=== PATIENT | female | born 1960 | race Caucasian/White ===

== ENCOUNTER 2016-04-01 16:25 | Emergency (ER) | payer OTHER ==
[~2016-04-01] VITALS: Wt 62.0 kg
--- NOTE | 2016-04-01 18:33 | ERD ---
ER Documentation Chief Complaint Date/Time DATE: 04/01/16 TIME: 18:31 Chief Complaint llq HPI There is a 55-year-old female. 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 The patient is a very difficult historian with myriad complaints. Her main complaint today is left lower quadrant abdominal pain for at least 2 weeks. She describes it as swelling and throbbing. The patient approximately 8 months ago had a "tummy tuck in [facility] ". The patient denies any nausea vomiting or diarrhea, no constipation. Multiple other complaints including periorbital swelling 2 weeks ago that has resolved, lumbar back pain 3 weeks ago that has since resolved. ROS All systems reviewed and are negative except as per history of present illness. Medications Home Meds Active Scripts Ondansetron (Ondansetron Odt) 4 Mg Tab.rapdis, 4 MG PO Q6H Y for NAUSEA AND/OR VOMITING, #30 TAB Prov:CHIDI ALBA MD 04/01/16 Dicyclomine Hcl* (Bentyl*) 10 Mg Capsule, 10 MG PO QID Y for abdominal cramping , #30 CAP Prov:CHIDI ALBA MD 04/01/16 PMhx/Soc Medical and Surgical Hx: pt denies Medical Hx, pt denies Surgical Hx Hx Alcohol Use: No Hx Substance Use: No Smoking Status: Never smoker FmHx Family History: No diabetes Physical Exam Vitals Vital Signs Date Time Temp Pulse Resp B/P Pulse Ox O2 Delivery O2 Flow Rate FiO2 04/01/16 16:28 98.1 74 20 122/64 95 Physical Exam General: Well developed, well nourished, no acute distress Head: Normocephalic, atraumatic. Eyes: Pupils equally reactive, EOM intact ENT: Moist mucous membranes Neck: Supple, no lymphadenopathy Respiratory: Lungs clear bilaterally, no distress Cardiovascular: RRR, no murmurs, rubs, or gallops Abdominal: Soft, inconsistent mild tenderness to left lower quadrant surgical wound is well-appearing : Deferred MSK: No edema, no unilateral swelling, 5/5 strength Neurologic: Alert and oriented, moving all extremities, normal speech, no focal weakness, no cerebellar signs Skin: No rash Psych: Normal mood Result Diagram: 04/01/16181104/01/16 181 Results 24 hrs Laboratory Tests Test 2/16/17 18:12 Alanine Aminotransferase (ALT/SGPT) 27IU/L Albumin 4.4g/dl Albumin/Globulin Ratio 1.69 Alkaline Phosphatase 83IU/L Anion Gap 17 Aspartate Amino Transf (AST/SGOT) 21IU/L Basophils # 0.010^3/ul Basophils % 0.5% Blood Urea Nitrogen 10mg/dl Calcium Level 9.6mg/dl Carbon Dioxide Level 29mmol/L Chloride Level 104mmol/L Creatinine 0.47mg/dl Direct Bilirubin 0.00mg/dl Eosinophils # 0.310^3/ul Eosinophils % 3.8% Globulin 2.60g/dl Glucose Level 78mg/dl Hematocrit 40.5% Hemoglobin 13.8g/dl Indirect Bilirubin 0.2mg/dl Lipase 151U/L Lymphocytes # 2.110^3/ul Lymphocytes % 27.5% Mean Corpuscular Hemoglobin 29.9pg Mean Corpuscular Hemoglobin Concent 34.1g/dl Mean Corpuscular Volume 87.8fl Mean Platelet Volume 7.5fl Monocytes # 0.710^3/ul Monocytes % 8.4% Neutrophils # 4.710^3/ul Neutrophils % 59.8% Nucleated Red Blood Cells # 0.010^3/ul Nucleated Red Blood Cells % 0.0/100WBC Platelet Count 83464^3/UL Potassium Level 4.0mmol/L Red Blood Count 4.6110^6/ul Red Cell Distribution Width 12.7% Sodium Level 146mmol/L Total Bilirubin 0.2mg/dl Total Protein 7.0g/dl White Blood Count 7.810^3/ul Procedures/MDM EKG, MONITORS, & DIAGNOSTIC IMAGING: CT abdomen and pelvis: IMPRESSION: 1. Mild colonic diverticulosis without evidence of diverticulitis. 2. Otherwise unremarkable noncontrast CT abdomen and pelvis without acute pathology identified. RPTAT: AA LAB INTERPRETATION: No leukocytosis, normal electrolytes MEDICAL DECISION MAKING: The patient presents with 2 weeks of abdominal pain. She had a surgery in [facility] approximately 8 months ago. Broad differential however this is not consistent with infection. Her surgical site is well-appearing. Given the patient's surgical history, inconsistent and unreliable history I do believe she would benefit from laboratory testing and CT imaging. However, very low clinical concern for diverticulitis, bowel obstruction, acute appendicitis, perforation, abscess, ovarian process among others. ER COURSE: The patient continues to be well-appearing. Her laboratory testing is unrevealing. CT abdomen and pelvis is also unrevealing. At this time outpatient management for the subacute process would be reasonable. The patient has been referred to her primary care physician. I kept the patient and/or family informed of laboratory and diagnostic imaging results throughout the emergency room course. DISPOSITION PLAN: We discussed follow up with the patient's primary care doctor within 24 to 48 hours as needed. We also discussed return to the emergency room for worsening symptoms or worsening condition. Discharge Medications: Cally Coker Departure Diagnosis: Primary Impression: Abdominal pain Abdominal location: generalized Qualified Code: R10.84 - Generalized abdominal pain Condition: Stable CHIDI ALBA MD Apr 01, 2016 18:33
[2016-04-01 18:45] LABS: HEMATOCRIT 40.5 % (37.0-47.0); HEMOGLOBIN 13.8 g/dl (12.0-16.0); MEAN CORPUSCULAR HEMOGLOBIN 29.9 pg (29.0-33.0); MEAN CORPUSCULAR HGB CONC 34.1 g/dl (32.0-37.0); MEAN CORPUSCULAR VOLUME 87.8 fl (82.0-101.0); MEAN PLATELET VOLUME 7.5 fl (7.4-10.4); PLATELET COUNT 292 10^3/UL (140-440); RED BLOOD COUNT 4.61 10^6/ul (4.20-5.40); RED CELL DISTRIBUTION WIDTH 12.7 % (11.5-14.5); UNCORRECTED WBC 7.8 10^3/ul (4.8-10.8); WHITE BLOOD COUNT 7.8 10^3/ul (4.8-10.8)
[2016-04-01 18:46] LABS: CONDITION 1
[2016-04-01 18:51] LABS: ALBUMIN 4.4 g/dl (3.3-4.9)
[2016-04-01 18:54] LABS: ALBUMIN/GLOBULIN RATIO 1.69; BILIRUBIN,INDIRECT 0.2 mg/dl (0-1.1); BILIRUBIN,TOTAL 0.2 mg/dl (0.2-1.3); CREATININE 0.47 mg/dl (0.44-1.00)
[2016-04-01 18:55] LABS: CALCIUM 9.6 mg/dl (8.4-10.2)
--- NOTE | 2016-04-01 18:58 | RADRPT ---
PROCEDURE: CT Abdomen and Pelvis without intravenous contrast. CLINICAL INDICATION: Abdominal left lower quadrant pain. . TECHNIQUE: CT scan of the abdomen and pelvis without intravenous contrast was performed on a multi -slice CT scanner. Coronal and sagittal reformatted images were obtained from the axial source image s. Images were reviewed on a high-resolution PACS workstation. Total DLP = 462.6 mGy-cm. CTDIvol = 9.3 mGy. One or more of the following dose reduction techniques were used: Automated exposure control. Adjustment of the mA and/or kV according to patient size. Use of iterative reconstruction technique. COMPARISON: None. FINDINGS: CT abdomen and pelvis: The lung bases are clear. The heart size is normal in size. The liver is normal in size and densit y without focal mass or intrahepatic biliary dilatation. The spleen is normal in size and homogeneo us in density. The pancreas as visualized is normal. The gallbladder shows no evidence of stones or distension . The adrenal glands are normal. The kidneys are symmetrically unremarkable. No ur olithiasis, obstructive uropathy, or solid mass lesion is seen. The stomach is partially collapsed, but is grossly unremarkable. The small bowels are unremarkable. The colon and rectum are normal. Mild retained feces seen in the right colon. The appendix is normal . There are scattered colonic diverticula. There is no evidence of appendicitis or diverticulitis. The pelvic organs are normal. The bladder is normal. There is no abdominal or pelvic adenopathy, fr ee fluid, free air, mass or mesenteric inflammation. The aorta is normal in caliber with calcific atherosclerosis . The osseous structures appear intact. . No osteolytic or osteoblastic lesions are identified. The soft tissues are within normal limits. Lack of IV and oral contrast limits sensitivity of exam. IMPRESSION: 1. Mild colonic diverticulosis without evidence of diverticulitis. 2. Otherwise unremarkable noncontrast CT abdomen and pelvis without acute pathology identified. RPTAT: AA .Matt Solis MD, MD Date Time Electronically viewed and signed by .Matt Solis MD, MD on 04/01/2016 18:57 .L/
[2016-04-01 19:00] LABS: ADD UMIC YES; URINE BILIRUBIN (Dip) NEGATIVE (NEGATIVE); URINE BLOOD (Dip) TRACE (NEGATIVE); URINE COLOR LT. YELLOW (YELLOW); URINE GLUCOSE (Dip) NEGATIVE (NEGATIVE); URINE KETONES (Dip) NEGATIVE (NEGATIVE); URINE LEUKOCYTE ESTERASE (Dip) TRACE (NEGATIVE); URINE NITRITE (Dip) NEGATIVE (NEGATIVE); URINE TOTAL PROTEIN (Dip) NEGATIVE (NEGATIVE); URINE UROBILINOGEN (Dip) 0.2 E.U./dL (0.1-1.0)
[2016-04-01] MEDS ORDERED: ONDA4TAB14 PO (19:11)
[2016-04-01] MEDS ORDERED: DICY10CA60 PO (19:11)
[2016-04-01 19:25] LABS: URINE RBCS 0-2 /HPF (0)
[2016-04-01 19:26] LABS: SQUAMOUS EPITHELIAL CELL,UR FEW
[2016-04-01 22:18] LABS: EOSINOPHILS # 0.5 10^3/ul (0.0-0.5); LYMPHOCYTES # 2.6 10^3/ul (0.8-2.9); MONOCYTE # 0.7 10^3/ul (0.3-0.9)
== END 2016-04-01 19:36 | disposition home or self-care (01) ==
LOC: FTE 16:25
DX: R10.84 Generalized abdominal pain (principal)
CPT/HCPCS: 36415; 74176; 80053; 81001; 83690; 85025; Z7502; 81003

== ENCOUNTER 2018-03-05 18:17 | Emergency (ER) | payer MEDICAID, OTHER ==
[~2018-03-05] VITALS: Ht 160 cm; Wt 67.0 kg
[~2018-03-05 18:17] MED LIST: DICY10CA40 PO; ONDA4TAB14 PO
[2018-03-05 18:27] VITALS: Ht 160 cm; Wt 67.0 kg
[2018-03-05] MEDS ORDERED: CEPH-443 PO (19:49)
[2018-03-05] MEDS ORDERED: SULF1TAB31 PO (19:49)
[2018-03-05 19:55] VITALS: BP 123/63; PULSE 68; RESP 16
--- NOTE | 2018-03-05 19:55 | ERD ---
ER Documentation Chief Complaint Chief Complaint RECTAL PAIN AND PELVIC PAIN, NO BLEEDING HPI 57-year-old female presents with 3-day history of perirectal pain. She says she is not sure what it is that she has had it in the past. Denies pain upon defecation. Does state that it is tender to palpation. Says that her sometimes a little blood on the toilet paper. Denies fevers, constipation, diarrhea, dysuria denies. Past medical history of diverticulitis. Denies allergies. Denies medications. Denies surgeries. Denies alcohol, tobacco, drug use. Up to date on vaccines. ROS All systems reviewed and are negative except as per history of present illness. Medications Home Meds Active Scripts Sulfamethoxazole/Trimethoprim* (Bactrim Ds* Tablet) 1 Each Tablet, 1 TAB PO BID for infection for 7 Days, #14 TAB Prov:JAVICHRISTIE 03/05/18 Cephalexin* (Keflex*) 500 Mg Capsule, 500 MG PO QID for infection for 7 Days, #28 CAP Prov:MARILYNHAYESCHRISTIE 03/05/18 Ondansetron (Ondansetron Odt) 4 Mg Tab.rapdis, 4 MG PO Q6H PRN for NAUSEA AND/OR VOMITING, #30 TAB Prov:CHIDI ALBA MD 04/01/16 Dicyclomine HCl (Dicyclomine HCl) 10 Mg Capsule, 10 MG PO QID PRN for abdominal cramping, #30 CAP Prov:CHIDI ALBA MD 04/01/16 Allergies Allergies: Coded Allergies: No Known Allergy (Unverified , 03/05/18) PMhx/Soc Medical and Surgical Hx: pt denies Surgical Hx Hx Miscellaneous Medical Probl: Yes (sinus) Hx Alcohol Use: No Hx Substance Use: No Smoking Status: Never smoker Physical Exam Vitals Vital Signs Date Temp Pulse Resp B/P (MAP) Pulse Ox O2 O2 Flow FiO2 Time Delivery Rate 03/05/18 98.2 68 16 123/63 96 Room Air 19:55 (83) 03/05/18 98.3 62 19 113/54 95 18:27 (73) Physical Exam Const: No acute distress Eyes: Normal Conjunctiva ENT: Normal External Ears, Nose and Mouth. Neck: Full range of motion. No meningismus. Resp: Clear to auscultation bilaterally Cardio: Regular rate and rhythm, no murmurs Abd: Soft, non tender, non distended. Normal bowel sounds Skin: Nonfluctuant, nonindurated, erythematous lesion located at the right lateral perianal area approximately 2 cm in diameter. Some posterior discharge noted. No mass noted. No bleeding noted. Neur: Awake and alert Psych: Normal Mood and Affect Procedures/MDM MDM: 57-year-old female presents with 3-day history of perirectal pain. She says she is not sure what it is that she has had it in the past. Denies pain upon defecation. Does state that it is tender to palpation. Says that her sometimes a little blood on the toilet paper. Denies fevers, constipation, diarrhea, dysuria denies. Based on physical exam patient history of low suspicion for fulminant abscess or fistula. Presentation looks like possible early abscess formation. Patient given Rx for Bactrim and Keflex to prevent abscess formation and treat infection. Patient discharged with strict ER precautions. Patient advised to follow up with PMD. All questions answered at discharge. Departure Diagnosis: Primary Impression: Perirectal cellulitis Condition: Stable Patient Instructions: Abscess, Antiobiotic Treatment Only Referrals: [facility] YOU HAVE RECEIVED A MEDICAL SCREENING EXAM AND THE RESULTS INDICATE THAT YOU DO NOT HAVE A CONDITION THAT REQUIRES URGENT TREATMENT IN THE EMERGENCY DEPARTMENT. FURTHER EVALUATION AND TREATMENT OF YOUR CONDITION CAN WAIT UNTIL YOU ARE SEEN IN YOUR DOCTORS OFFICE WITHIN THE NEXT 1-2 DAYS. IT IS YOUR RESPONSIBILITY TO MAKE AN APPOINTMENT FOR FOLOW-UP CARE. IF YOU HAVE A PRIMARY DOCTOR --you should call your primary doctor and schedule an appointment IF YOU DO NOT HAVE A PRIMARY DOCTOR YOU CAN CALL OUR PHYSICIAN REFERRAL HOTLINE AT IF YOU CAN NOT AFFORD TO SEE A PHYSICIAN YOU CAN CHOSE FROM THE FOLLOWING [facility] [id number] [facility] [address] [facility] [address] [facility] [address] [facility] [address] [facility] [address] Additional Instructions: FOLLOW UP WITH YOUR PRIMARY CARE PHYSICIAN TOMORROW.Return to this facility if you are not improving as expected. CHRISTIE CALDWELL Mar 05, 2018 19:55
== END 2018-03-05 19:56 | disposition home or self-care (01) ==
LOC: FTE 18:17
DX: K61.1 Rectal abscess (principal)
CPT/HCPCS: 99283